=== PATIENT | female | born 1955 | race Caucasian/White ===

== ENCOUNTER 2016-08-29 14:53 | Inpatient (IN) | payer OTHER ==
--- NOTE | 2016-11-11 12:14 | HP ---
DATE OF CLINIC: 11/02/16 MERCEDES RENTERIA. : 1955 Planned Procedure: Right total knee arthroplasty Date of Surgery: November 14, 2016 Surgeon: Dr. Juan Pugh PCP: Dr. Manuel Erickson HISTORY OF PRESENT ILLNESS Mercedes Renteria is a 60 year old female. * Medication list reviewed with patient allergy list reviewed with patient. 60-year-old female seen today for a preoperative H&P for upcoming right TKA. Patient continues to be painful in her right knee with decreasing levels of activity secondary to her pain. She describes pain with weightbearing, stair climbing, squatting, kneeling, etc. She is here today for preop for definitive management. Dr. Pugh's last consultation is as follows: Patient is a 60-year-old female I saw over 6 years ago for bilateral right greater than left knee pain. At that time clinical and radiographic exam was consistent with DJD bilaterally with valgus deformity. We discussed an unloading brace as well as definitive management with arthroplasty. She decided to manage this nonoperatively since then. She does have a history, prior to my initial evaluation, of a right knee arthroscopy with PLM by Dr. Rinaldi without improvement. She recently saw [facility] with chronic worsening problems, particularly loaded flexion such as stairs, rising from a chair and startup pain. Also is noticing increasing feelings of instability and night pain. Additional previous treatment has included viscosupplementation and intraarticular corticosteroid with minimal temporary benefit. The unloading brace she has used in the past is uncomfortable and not well tolerated. [facility] sent her to PT, she did not go because of some difficulties with her spouse's health. She has tried to remain active, but is feeling very limited now. She is interested in proceeding with arthroplasty at this point starting on the right side and wonders about my opinion with respect to that. Comorbidities include hypertension, non-insulin dependent diabetes. CURRENT MEDICATION * *Supplement Miscellaneous 1 once a day calcium citrate/magnesium/Zinc wD3, Vitamin C w/sylwia hip, Mag/Ox, vitamin D3, 0 days, 0 refills * Adult Aspirin EC Low Strength 81 MG Tablet Delayed Release 1 once a day 0 days, 0 refills * Crestor 10 MG Tablet 1 once a day 0 days, 0 refills * Fish Oil 1000 MG Capsule 1 twice a day 0 days, 0 refills * Folic Acid 800 MCG Tablet 1 once a day 0 days, 0 refills * Ibuprofen 200 MG Tablet as needed 0 days, 0 refills * Lexapro 10 MG Tablet half a tablet every day aka: Escitalopram, 0 days, 0 refills * Losartan Potassium 50 MG Tablet 1 once a day 0 days, 0 refills * MetFORMIN HCl 500 MG Tablet 1 twice a day 0 days, 0 refills * PriLOSEC OTC 20 MG Tablet Delayed Release as needed 0 days, 0 refills * RaNITidine HCl 300 MG Capsule as needed 0 days, 0 refills * Super B-Complex Capsule 1 twice a day 0 days, 0 refills * Wellbutrin XL 150 MG Tablet Extended Release 24 Hour 1 once a day aka: Bupropion XL, 0 days, 0 refills PAST MEDICAL/SURGICAL HISTORY Reported: Medical: Cholesterol problems. A previous fracture Right wrist, Diabetes Mellitus Pre, history of Arthritis, Hypertension, Vertigo, and Asthma. Surgical / Procedural: Surgical / procedural history Rt knee scope mm Dr. Rinaldi. Diagnoses: Diabetes mellitus Hormone replacement Therapy. Surgical: * Surgery of the pharynx, adenoids, and tonsils * Hysterectomy 1979 SOCIAL HISTORY Behavioral: Quit smoking 08/08/02. Smoking status: Former smoker. Alcohol: A social drinker. Work: Occupation Retired. ALLERGIES * No Known Allergies FAMILY HISTORY Father ill Heart Disease,HBP,Diabetes Mother ill HBp, Thyroid Disease Brother ill HBP Sister ill Cancer Second sister ill HBP Third sister ill [place] Iillness, Thyroid Disease REVIEW OF SYSTEMS Systemic: No fever and no recent weight change. Head: No head symptoms. Cardiovascular: No cardiovascular symptoms. Pulmonary: No pulmonary symptoms. Gastrointestinal: No gastrointestinal symptoms. Psychological: No psychological symptoms. Skin: No skin lesions and no rash. PHYSICAL FINDINGS * Vitals taken 11/02/2016 11:11 am BP-Sitting L 152/98 mmHg BP Cuff Size Regular Pulse Rate-Sitting 78 bpm Temp-Oral 97.1 F Height 66 in Weight 245 lbs Body Mass Index 39.5 kg/m2 Body Surface Area 2.18 m2 Pain Level 4 Ears, Nose, Throat: * ENT: normal. Lungs: * Clear to auscultation No wheezing or crackles. Cardiovascular: Heart Rate And Rhythm: * Normal RRR without murmur. Abdomen: * Normal Soft NT +BS. Neurological: Motor: * Dominant Hand = Right Hand. Patient is a well-developed, well-nourished female in no acute distress, normal appearing mood and affect. On standing she has fairly notable genu valgum bilaterally. She ambulates with a stiff-legged gait. Evaluation of the right knee shows skin integrity to be well-preserved, no wounds, rashes or lesions. She has mild swelling, no gross effusion. Motion is 0-110 degrees. Her valgus is correctable to neutral. She is tender lateral greater than medial. There is pain and crepitation on patellofemoral compression. NT medially. Ligamentous exam shows 1+ laxity to valgus stress. Drawer is negative. Calf is soft and NT. Distal light touch sensation and motor function are grossly intact and symmetric. Pulses are palpable. Gentle rotation of the hip is nonirritable. Evaluation of the left knee shows skin integrity to be well-preserved, no wounds, rashes or lesions. Mild swelling, no gross effusion. Motion is 0-115 degrees. Her deformity is correctable to neutral. She is tender lateral greater than medial, fairly diffuse. Mild discomfort with patellar compression. Negative drawer. Calf is soft and NT. Distal light touch sensation and motor function are grossly intact and symmetric. Pulses are palpable. Gentle rotation of the hip is nonirritable. TESTS Radiographs, 4 views bilateral knees, from 03/11/16 are reviewed with the patient. These show complete lateral joint space loss with periarticular sclerosis and marginal spurring. Medial compartments are relatively well preserved. Mild spurring at the patellofemoral articulation bilaterally. ASSESSMENT DJD, right knee, with valgus deformity. PREVIOUS TESTS * Test: CBC WITH DIFF Report Date: 10/26/2016 WBC 7.5 10*3/mL BASOPHIL 0.5 % RBC 4.68 10*6/uL NEUTROPHILS 51.1 % MCH 31.2 pg High MCHC 33.2 g/dL RDW 12.7 % MCV 94.0 fL PLATELET COUNT 132 10*3/mL IMM NEUT % 0.3 % IMM NEUT # 0.0 10*3/mL MONOCYTES 6.2 % EOSINOPHIL 3.3 % High HCT 44.0 % HGB 14.6 g/L LYMPHOCYTE 38.6 % ANC 3.8 10*3/mL * Test: COMPREHENSIVE METABOLIC PANEL Report Date: 10/26/2016 ALT/SGPT 23 U/L ALBUMIN 4.8 g/dL ALB/GLOB RATIO 1.9 BUN 14 mg/dL BUN/CREAT RATIO 18 CALCIUM 10.4 mg/dL High GLUCOSE 126 mg/dL High CREATININE 0.8 mg/dL SODIUM 140 meq/L POTASSIUM 4.3 meq/L CHLORIDE 100 meq/L CARBON DIOXIDE 32 meq/L High ANION GAP 12 meq/L TOT PROTEIN 7.3 g/dL GLOBULIN 2.5 g/dL BILI,TOTAL 0.5 mg/dL AST/SGOT 20 U/L ALK PHOSPHATASE 50 U/L GFR 73 * Test: URINALYSIS WITH MICROSCOPIC Report Date: 10/26/2016 EPITHELIAL CELL 0-2 WBC 0-1 GLUCOSE NEGATIVE BACTERIA 0 PH,URINE 6.0 SPEC. GRAVITY 1.025 KETONE TRACE NITRITE NEGATIVE RBC 0 BLOOD NEGATIVE BILIRUBIN NEGATIVE APPEARANCE HAZY PROTEIN 1+ COLOR YELLOW LEUK ESTERASE TRACE UROBILINOGEN NORMAL AMORPH SEDIMENT MODERATE * Test: CULTURE, MRSA Report Date: 10/28/2016 CULTURE, MRSA See Report THERAPY * Patient not eligible for fall risk assessment. PLAN * Unilateral primary osteoarthritis, right knee Physical Therapy: PT [facility] * OTHER OxyCONTIN 10 MG T12A, 1 po q 12 hours-TO BE USED FOR AFTER SURGERY, 10 days, 0 refills OxyCODONE HCl 5 MG TABS, 1or 2 tablets every 4 to 6 hours as needed-TO BE USED FOR AFTER SURGERY, 5 days, 0 refills CeleBREX 200 MG CAPS, 1 once a day-TO BE USED FOR AFTER SURGERY, 20 days, 0 refills * Total knee arthroplasty -Right Discussed with patient in detail the limitations, expectations as well as risks and possible complications of surgery including, but not limited to wound problems or infection, neurovascular injury, continued knee pain or dysfunction, including the possibility of prosthetic wear or failure over time that may require additional operative or nonoperative treatment. Patient also realizes the perioperative risks including risks associated with anesthesia and would like to proceed. A full PAR conference was held, questions and concerns addressed and informed consent was obtained. Patient will be sent from my office for completion of the preoperative workup. Patient will use ECASA 325mg one per day for 6 weeks postoperatively for DVT prophylaxis. Patient would like to perform their postop PT at [facility] with total knee arthroplasty protocol. CARE TEAM Manuel Erickson MD Internal Medicine
[2016-11-14] MEDS ORDERED: TRANEXAMIC ACID 1,000 MG in SODIUM CHLORIDE 0.9% 100 ML IV PRN (10:15)
[2016-11-14] MEDS ORDERED: TRAMADOL HCL 50 MG TABLET PO ONE (10:15)
[2016-11-14] MEDS ORDERED: BUPIVACAINE 0.25% (MDV) 24 ML, MORPHINE SULFATE 8 MG, EPINEPHRINE 0.3 MG in SODIUM CHLO... IF PRN (10:15)
[2016-11-14] MEDS ORDERED: CLONIDINE HCL 0.1 MG/24 HR (7 DAY PATCH) TD SCH (10:15)
[2016-11-14] MEDS ORDERED: FAMOTIDINE 20 MG TABLET PO ONE (10:15)
[2016-11-14] MEDS ORDERED: POLYMYXIN B SULFATE 500,000 UNITS, BACITRACIN 25,000 UNITS in SODIUM CHLORIDE 3 L IRRIG... IR PRN (10:15)
[2016-11-14] MEDS ORDERED: CELECOXIB 200 MG CAPSULE PO ONE (10:15)
[2016-11-14] MEDS ORDERED: OXYCODONE HCL 10 MG TAB.SR PO ONE ×2 (10:15→11:06)
[2016-11-14] MEDS ORDERED: GABAPENTIN 600 MG TABLET PO ONE (10:15)
[2016-11-14] MEDS ORDERED: ONDANSETRON 4 MG/2ML 2 ML VIAL IV ONE (10:15)
[2016-11-14] MEDS ORDERED: BUPIVACAINE 0.25% (MDV) 20 ML in SODIUM CHLORIDE 0.9% FLUSH 20 ML IF PRN (10:15)
[2016-11-14] MEDS ORDERED: CEFAZOLIN SODIUM 2 GRAM PREMIX 100 ML IV PRN (10:15)
[2016-11-14] MEDS ORDERED: FENTANYL 100 MCG/2 ML VIAL ONE (10:26)
[2016-11-14] MEDS ORDERED: MIDAZOLAM HCL 1 MG/ML 2ML VIAL ONE ×3 (10:26→14:02)
[2016-11-14] MEDS ORDERED: IV START KIT ONE (10:34)
[2016-11-14] MEDS ORDERED: SODIUM CHLORIDE 0.9% 1,000 ML ONE (10:35)
[2016-11-14] MEDS ORDERED: CEFAZOLIN SODIUM 2 GRAM PREMIX 100 ML IV ONE (10:36)
[2016-11-14] MEDS ORDERED: TRAMADOL HCL 50 MG TABLET ONE (11:06)
[2016-11-14] MEDS ORDERED: FAMOTIDINE 20 MG TABLET ONE (11:07)
[2016-11-14] MEDS ORDERED: GABAPENTIN 600 MG TABLET ONE (11:07)
[2016-11-14] MEDS ORDERED: ONDANSETRON 4 MG/2ML 2 ML VIAL ONE (11:07)
[2016-11-14] MEDS ORDERED: CLONIDINE HCL 0.1 MG/24 HR (7 DAY PATCH) TD ONE (11:07)
[2016-11-14] MEDS ORDERED: CELECOXIB 200 MG CAPSULE ONE (11:07)
[2016-11-14] MEDS ORDERED: SPINAL PROCEDURAL TRAY 1 EACH ONE (12:03)
[2016-11-14] MEDS ORDERED: NERVE BLOCK PROCEDURAL TRAY 1 EACH ONE (12:03)
[2016-11-14] MEDS ORDERED: ROPIVACAINE 0.5% 30 ML VIAL ONE (12:04)
[2016-11-14] MEDS ORDERED: EPHEDRINE SULFATE UD SYR 25 MG 25 MG/5 ML SYRINGE IV ONE (13:54)
[2016-11-14] MEDS ORDERED: PROPOFOL 40 ML IV ONE (13:55)
[2016-11-14] MEDS ORDERED: ON-Q PUMP/ROPIVACAINE 0.2% 450 ML in PREMIX BAG 1 EACH NB PRN (14:16)
[2016-11-14] MEDS ORDERED: ATROPINE SULFATE 0.4 MG/1 ML VIAL IV PRN (14:16)
[2016-11-14] MEDS ORDERED: HYDROMORPHONE HCL 1 MG/ML SYRINGE IV PRN ×2 (14:16→16:18)
[2016-11-14] MEDS ORDERED: FENTANYL 100 MCG/2 ML VIAL IV PRN (14:16)
[2016-11-14] MEDS ORDERED: PROMETHAZINE HCL 25 MG/ML VIAL IM PRN (14:16)
[2016-11-14] MEDS ORDERED: NALOXONE HCL 0.4 MG/ML VIAL IV PRN (14:16)
[2016-11-14] MEDS ORDERED: SODIUM CHLORIDE 0.9% 1,000 ML IV SCH (14:30)
[2016-11-14] MEDS ORDERED: PROPOFOL 20 ML IV ONE (14:39)
[2016-11-14] MEDS ORDERED: ON-Q PUMP/ROPIVACAINE 0.2% 450 ML ONE (15:27)
--- NOTE | 2016-11-14 15:37 | PCMBPN ---
Brief Post Op Note: Date of Procedure: 11/14/16 Preoperative Diagnosis: DJD right knee Postoperative Diagnosis: 1. [Same] Procedure: right TKA Surgeon: Juan Pugh MD Assist: Param (REMA) Anesthesia: spinal/add block ([place]) Findings: valgus knee Condition: stable to PAR Complications: none IV Fluids: 1800 mLs of LR [] Urine Output: 700 mLs Estimated Blood Loss: 200 mLs Tourniquet Time: ~45 Specimens: [N/A] Implants: Legion Drains: none
--- NOTE | 2016-11-14 16:13 | OP ---
MERCEDES DESHPANDE [id number] : 1955 DATE OF SURGERY: November 14, 2016 PREOPERATIVE DIAGNOSIS: Degenerative joint disease right knee POSTOPERATIVE DIAGNOSIS: Same PROCEDURE: Right Total Knee Arthroplasty COMPONENTS: Legion size 5 narrow posterior stabilized Oxinium cemented femoral component, size 4 cemented tibial base plate, 9mm posterior stabilized high flexion cross-linked polyethylene articular insert, 32mm resurfacing patella. SURGEON: Juan Pugh M.D. COLLECTIONS ASSISTANT: Sintia SANTIZO) ANESTHESIA: Spinal plus adductor nerve block per [place]. ESTIMATED BLOOD LOSS: 200 cc IV FLUID REPLACEMENT: per anesthesia, 1.8 liters crystalloid. URINE OUTPUT: 700 cc DRAINS: None TOURNIQUET TIME: Approximately 45 minutes COMPLICATIONS: None HISTORY: Briefly, patient is a 61-year-old female with clinical and radiographic evidence of advanced degenerative disease of their right knee. They have failed traditional non-operative management and desire elective total knee arthroplasty. For additional details, please refer to the previously dictated Preoperative History and Physical Examination. A PAR conference was held, questions and concerns were addressed, and informed consent was obtained. FINDINGS: Fixed valgus deformity with significant lateral wear off the distal femur as well as posterolateral tibia. There were tricompartmental changes with involvement of the patellofemoral and medial compartment as well. Significant intraarticular synovitis was evident, particularly in the suprapatellar pouch. PROCEDURE: The patient was taken to the operating room after the placement of a spinal anesthetic and regional nerve block. They were placed supine on the operating room table, a tourniquet was applied to the proximal thigh and the right lower extremity was prepped and draped out in the usual sterile fashion. Preoperative IV antibiotics were given empirically. Intraoperative DVT prophylaxis consisted of contralateral foot pumps. Personal filtration suits were used as was a closed room environment. A WHO timeout was taken. Surgical site was identified and confirmed. The leg was then elevated and the tourniquet inflated after gravity exsanguination. This was released after initial exposure and not utilized again until cementation. Tranexamic acid was infiltrated over 10 minutes prior to incision, 1 gram dose per protocol. A similar 2nd dose was given at initiation of closure. With the knee flexed, an anteromedial incision was made from the level of the tibial tubercle to two centimeters proximal to the superior pole of the patella. A medial arthrotomy was performed with a mini-mid vastus approach. A medial subperiosteal proximal tibial release was performed and a portion of the anterior fat pad was excised to improve visualization. The involved area of the synovium in the supra-patellar pouch was excised and the remainder raised subperiosteally. The anterior and posterior cruciate ligaments were excised as were the remaining portions of the anterior horns of the medial and lateral menisci. Minimally invasive instrumentation and philosophy were used throughout the procedure in an attempt to decrease the extent of soft tissue disruption/damage. Patient matched cutting blocks were also used as per our preoperative plan. The [employer] patient matched distal femoral cutting block was applied and secured to the bone. We confirmed that the alignment matched our preoperative plan and made the distal femoral cut. We confirmed the size of the femur and placed the appropriate 4-in-1 cutting block making our anterior and posterior condylar cuts followed by the chamfer cuts. Residual marginal osteophytes were removed. Attention was then directed to the tibia which was retracted anteriorly. Remaining meniscal tissue was excised. The Visionaire patient matched tibial block was then positioned and secured to bone. Alignment was confirmed as per our preoperative plan and the proximal tibial cut made. The tibia was sized and we passed the 11 mm. punch. We then balanced the flexion and extension gaps by removal of residual posteromedial and posterolateral femoral osteophytes under direct visualization. We confirmed hemostasis. We then completed the femoral preparation by reaming and chiseling the notch. Femoral and tibial trial components were placed. We were able to obtain full extension with nice roll back and good coronal plane alignment and stability. The patella tracked well and was prepared using the Erasmo patellar reaming system removing 9 mm. of bone. Osteophytes were removed prior to this with a rongeur and we performed a circumferential limited denervation using cautery. This was sized accordingly and punch holes were drilled. We marked our tibial rotation and removed the trial components after passing the cruciform tibial punch. The knee was then re-exsanguinated and the tourniquet inflated. Double antibiotic pulsatile lavage was used to irrigate the knee and clean the cancellous omero interstices which were then carefully dried. Periarticular injection was done at this point per protocol of the posterior capsule, posteromedial knee and synovium. Two doses of high viscosity, antibiotic impregnated polymethylmethacrylate were used to cement the tibial, femoral, and then patellar components. The knee was held in extension while the cement cured. All residual methacrylate was meticulously removed. Attention was then directed towards closure. We irrigated and the retinaculum was closed with a running #2 absorbable Strato-Fix suture. A second periarticular injection was done at this point per protocol. The repair was checked in maximum flexion. We then lightly irrigated the subcutaneous tissue and closed with interrupted 2-0 and 3-0 Vicryl Plus. The skin was then reapproximated with a subcuticular 4-0 Monocryl followed by Dermabond Prineo. A sterile compression dressing was applied. The patient was then transferred to their hospital bed and sent to the post anesthesia recovery room in stable condition. They tolerated the procedure well. Sponge, instrument, and needle count were correct. CC: Jhoana Arora MD PT [facility]
[2016-11-14] MEDS ORDERED: CALCIUM CARBONATE 500 MG TAB.CHEW PO PRN (16:18)
[2016-11-14] MEDS ORDERED: KETOROLAC TROMETHAMINE 30 MG/ML 1 ML VIAL IV PRN (16:18)
--- NOTE | 2016-11-14 16:26 | RAD ---
KNEE RIGHT 1 OR 2 VIEWS HISTORY: Postop knee arthroplasty. COMPARISONS: 03/11/2016. FINDINGS: 2 views of the right knee and demonstrate interval placement of a right knee arthroplasty with femoral and tibial components. No pericomponent fracture is suggested. The knee joint spaces are well-maintained. IMPRESSION: 1. An interval total right knee arthroplasty with no pericomponent fracture visualized.
[2016-11-14] MEDS ORDERED: HYDROMORPHONE HCL 2 MG/ML SYRINGE IV PRN (17:04)
[2016-11-14] MEDS ORDERED: HYDROMORPHONE HCL 0.5 MG/0.5 ML SYRINGE IV PRN (17:05)
[2016-11-14] MEDS ORDERED: PUMP TUBING ONE (17:12)
[2016-11-14] MEDS: NS/Potassium Chlor 20 mEq 1,000 ML IV SCH (17:21)
[2016-11-14] MEDS: ON-Q PUMP/ROPIVACAINE 0.2% 450 ML in PREMIX BAG 1 EACH NB PRN (17:22)
[2016-11-14] MEDS ORDERED: INSULIN ASPART (DOSE) 100 UNITS/1 ML SUB-Q PRN (17:50)
[2016-11-14 17:57] VITALS: BMI 39.4
[2016-11-14] MEDS: ACETAMINOPHEN 500 MG TABLET PO SCH ×2 (19:03→23:07)
[2016-11-14] MEDS: PANTOPRAZOLE 40 MG TABLET DR PO SCH (19:10)
--- NOTE | 2016-11-14 19:58 | CONS ---
MERCEDES DESHPANDEHM [id number] : 1955 DATE OF ADMISSION: November 14, 2016 DATE OF CONSULTATION: November 14, 2016 PRIMARY CARE PROVIDER: Manuel Erickson M.D. CONSULTATION REQUESTED BY: Juan Pugh M.D. REASON FOR CONSULTATION: Perioperative medical management of diabetes and hypertension. CHIEF COMPLAINT: Right knee pain. HISTORY ON ADMISSION: Ms. Deshpande has a long history of osteoarthritis. She consulted with Dr. Pugh and presented today for planned right total knee arthroplasty. She had surgery under spinal anesthesia with adductor block. Estimated blood loss was 200 mL. Tourniquet time approximately 45 minutes. No complications noted. She is seen on the medical/surgical floor postoperatively. She is awake and alert, oriented and denies any complaints. No pain, dyspnea, nausea, pruritus or other complaints. PREOPERATIVE REVIEW OF SYSTEMS: No recent upper or lower respiratory complaints. No cardiac complaints. No gastrointestinal complaints. No genitourinary complaints. PAST MEDICAL HISTORY: 1. Diabetes mellitus type 2, not on insulin. 2. Hypertension. 3. Obesity with a body mass index of 39.4. 4. Generalized anxiety. PAST SURGICAL HISTORY: 1. Prior right knee arthroscopy. 2. Tonsils and adenoids. 3. Hysterectomy in 1979. ALLERGIES: NONE KNOWN. However, she does report that she has been taking TYLENOL recently and that made her nauseated and did not help her pain. HOME MEDICATIONS: 1. Vitamin B complex. 2. Rosuvastatin 10 mg orally daily. 3. Losartan 50 mg orally daily. 4. Folic acid. 5. Lexapro 5 mg orally daily. 6. Cholecalciferol 2000 international units twice daily. 7. Calcium carbonate with vitamin D twice daily. 8. Bupropion 150 mg orally daily. 9. Ascorbic acid. 10. Omeprazole 20 mg orally as needed. 11. Franklin 3 supplement. 12. Aspirin 81 mg daily. 13. Ranitidine 75 mg orally as needed. 14. Metformin 1000 mg orally daily. 15. Magnesium oxide daily. HABITS: She is a former smoker, quit in 2002. She does drink alcohol about two drinks per evening. She has not had withdrawal symptoms. 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 FAMILY HISTORY: Significant for diabetes and thyroid disorders. PHYSICAL EXAMINATION: GENERAL: This is a pleasant 60-year-old. She is alert and oriented. VITAL SIGNS: Temperature is 98.7 degrees Fahrenheit, pulse 63, blood pressure 152/83, respiratory rate 17, oxygen saturation 100% on 2 L of oxygen by nasal cannula. HEENT: Pupils equal, round and reactive. Extraocular muscles are intact. Oropharynx is moist and stained by red Jell-O. LUNGS: Chest is clear to auscultation. HEART: Regular with 2/6 systolic murmur. ABDOMEN: Obese, soft, nontender, normal bowel tones. No organomegaly. EXTREMITIES: Moderate dorsalis pedis pulses. Right knee is in a cooling blanket and adductor nerve block is in place in the right thigh. NEUROLOGIC: Alert and oriented. No focal deficits. PREOPERATIVE LABORATORY STUDIES: Preoperative laboratory studies on October 26, 2016, normal CBC, normal prothrombin time and partial thromboplastin time, normal chemistry panel except for a CO2 mildly elevated at 32 and glucose of 126. She had trace ketonuria and proteinuria. Nasal swab for MRSA was negative. ASSESSMENT: Ms. Deshpande is a 61-year-old status post right total knee arthroplasty. She has underlying diabetes mellitus type 2, not on inulin therapy, hypertension and anxiety as well as obesity with a body mass index of 39.4. RECOMMENDATIONS: 1. Postoperative care per orthopedics. 2. Postoperative venous thromboembolism prophylaxis with aspirin and mechanical measures. 3. Hold metformin, check blood sugars before meals and at bedtime and cover with insulin as necessary. 4. Parameters for antihypertensive medications should she have postoperative hypotension. 5. Continue usual medications for anxiety. 6. Replace outpatient as needed acid blocking medications with scheduled inpatient famotidine and pantoprazole to prevent gastrointestinal distress. Thank you, Dr. Pugh, for this consultation. Hospitalist service will follow.
[2016-11-14] MEDS: FAMOTIDINE 20 MG TABLET PO SCH (21:20)
[2016-11-14] MEDS: ASCORBIC ACID 500 MG TABLET PO SCH (21:20)
[2016-11-14] MEDS: DOCUSATE SODIUM 100 MG CAPSULE PO SCH (21:20)
[2016-11-14] MEDS: CEFAZOLIN SODIUM 1 GRAM PREMIX 1 G in Premix (D5W) 50 ml 1 EACH IV SCH (21:21)
[2016-11-14] MEDS: VITAMIN D3 1,000 UNITS CAP.LIQ PO SCH (21:21)
[2016-11-14] MEDS: OXYCODONE HCL 5 MG TABLET PO PRN (21:21)
[2016-11-15] MEDS: OXYCODONE HCL 5 MG TABLET PO PRN ×7 (01:28→21:35)
[2016-11-15] MEDS: NS/Potassium Chlor 20 mEq 1,000 ML IV SCH ×3 (02:15→16:44)
[2016-11-15] MEDS: ACETAMINOPHEN 500 MG TABLET PO SCH ×3 (05:45→18:02)
[2016-11-15] MEDS: CEFAZOLIN SODIUM 1 GRAM PREMIX 1 G in Premix (D5W) 50 ml 1 EACH IV SCH (05:45)
[2016-11-15 06:45] LABS: HEMATOCRIT 34.3 % (37.0-47.0); HEMOGLOBIN 11.1 gm/l (12.0-16.0); MEAN CELL VOLUME 96.9 fl (81.0-99.0); MEAN CORPUSCULAR HEMOGLOBIN 31.4 pg (27.0-31.0); MEAN CORPUSCULAR HGB CONC 32.4 g/dl (33.0-37.0); RED CELL DISTRIBUTION WIDTH 12.9 % (11.5-14.5)
[2016-11-15 07:01] LABS: CALCIUM 8.3 mg/dL (8.6-10.3)
--- NOTE | 2016-11-15 07:22 | PDOC43 ---
- Subjective Findings: Pt seen this morning up and awake. Pain seems controlled at this point. Ready to get out of bed and work with PT. Subjective: Reports Pain Tolerable, Denies Flatus, Denies Chest Pain, Denies Shortness of Breath, Denies Nausea, Denies Vomiting - Objective Vital Signs Temperature 97.1 F 11/15/16 03:49 Pulse Rate 76 11/15/16 03:49 Respiratory Rate 18 11/15/16 03:49 Blood Pressure 104/64 11/15/16 03:49 O2 Saturation by Pulse Oximetry 92 11/15/16 03:49 Oxygen Delivery Method Room Air Oxygen Flow Rate 0 Laboratory 11/15/16 06:16 11/15/16 06:16 11/15/16 11/14/16 06:16 10:31 RBC 3.54 L MCH 31.4 H MCHC 32.4 L Anion Gap 7 L Estimated GFR 101 H POC Capillary Glucose 112 H Calcium 8.3 L Active Medication Orders Category Date Time Status Acetaminophen [Tylenol] Med 11/14/16 18:00 Active 1,000 mg PO Q6H Ascorbic Acid [Vitamin C] Med 11/14/16 21:00 Active 500 mg PO BID Aspirin (Enteric Coated) [Ecotrin] Med 11/15/16 09:00 Active 325 mg PO DAILY Bisacodyl [Dulcolax] Med 11/17/16 15:40 Active 10 mg CA DAILY PRN Bupropion HCl [Wellbutrin Xl] Med 11/15/16 09:00 Active 150 mg PO DAILY Calcium Carbonate [Tums] Med 11/14/16 16:18 Active 1,000 - 2,000 mg PO Q2H PRN Celecoxib [Celebrex] Med 11/15/16 09:00 Active 200 mg PO DAILY Docusate Sodium [Colace] Med 11/14/16 21:00 Active 100 mg PO BID Escitalopram Oxalate [Lexapro] Med 11/15/16 09:00 Active 5 mg PO DAILY Famotidine [Pepcid] Med 11/14/16 21:00 Active 20 mg PO BID Hydromorphone HCl [Dilaudid] Med 11/14/16 16:18 Active 0.5 - 2 mg IV Q2H PRN Hydromorphone HCl [Dilaudid] Med 11/14/16 17:04 Active 0.5 - 2 mg IV Q2H PRN Hydromorphone HCl [Dilaudid] Med 11/14/16 17:05 Active 0.5 - 2 mg IV Q2H PRN Insulin Aspart (Dose) [Novolog (Dose)] Med 11/14/16 17:50 Active See Protocol SUB-Q WM/BEDTIME PRN Ketorolac Tromethamine [Toradol] Med 11/14/16 16:18 Active 30 mg IV Q6H PRN Losartan Potassium [Cozaar] Med 11/15/16 09:00 Active 50 mg PO DAILY Magnesium Hydroxide [Milk of Magnesia] Med 11/15/16 15:40 Active 30 ml PO DAILY PRN Magnesium Oxide Med 11/15/16 09:00 Active 400 mg PO DAILY Multivitamins [One-A-Day] Med 11/15/16 09:00 Active 1 tab PO DAILY NS/Potassium Chlor 20 mEq 1,000 ml Med 11/14/16 16:18 Active IV 125 mls/hr On-Q Pump/Ropivacaine 0.2% 450 ml Med 11/14/16 16:18 Active Premix Bag [Premix Fluid] 1 each NB Q50H Ondansetron 4 mg/2ml Vial [Zofran] Med 11/14/16 16:18 Active 4 - 6 mg IV Q6H PRN Oxycodone HCl [Roxicodone] Med 11/14/16 16:18 Active 5 - 10 mg PO Q4H PRN Pantoprazole Sodium [Protonix] Med 11/14/16 18:00 Active 40 mg PO DAILY Remove Patch Med 11/15/16 11:12 Once 1 each TD X1 ONE Rosuvastatin Calcium [Crestor] Med 11/15/16 09:00 Active 10 mg PO DAILY Sodium Chloride 0.9% Flush [Normal Saline 10ml Flush] Med 11/14/16 16:18 Active 10 - 50 ml IV PRN PRN Sodium Chloride 0.9% Flush [Normal Saline 10ml Flush] Med 11/15/16 01:00 Active 10 ml IV Q8HR Vitamin D3 Med 11/14/16 21:00 Active 2,000 units PO BID Intake and Output 11/13/16 11/14/16 11/15/16 23:59 23:59 23:59 Intake Total 3200 3850 Output Total 1575 3750 Balance 1625 100 General: Afebrile HEENT: Atraumatic Lungs: Normal Air Movement Abdomen: Non-Distended Skin: Normal Color Neurological: Alert, Oriented x 4 Psych/Mental Status: Normal Affect, Normal Mood - Right Lower Extremity Motor: Extensor Hallucis Longus: 5/5, Tibialis Anterior: 5/5, Gastrocnemius: 5/5 , Peroneals: 5/5, Quadriceps: 3/5 Gross Sensation to Light Touch: Present: Deep Peroneal Nerve, Superficial Peroneal Nerve Capillary Refill: < 3 Seconds Motion: Calf soft NT Knee Rom 0-65 Min assist with SLR - Problems (1) Status post right knee replacement Status: AcuteAssessment/Plan: Pod#1 1. Physical Therapy:Mobilize with PT/OT , encouraged bed exercise 2. Pain Control:Per protocol and nerve cath 3. DVT Prophylaxis: ASA, foot pumps and mobility 4. Disposition:Doing well at this point 5. Medical Issues: DM. Management per hospitalist appreciate the care and consult.
[2016-11-15] MEDS: ON-Q PUMP/ROPIVACAINE 0.2% 450 ML in PREMIX BAG 1 EACH NB PRN (07:30)
[2016-11-15] MEDS: BUPROPION HCL 150 MG XL TAB.ER.24H PO SCH (09:38)
[2016-11-15] MEDS: ASCORBIC ACID 500 MG TABLET PO SCH ×2 (09:38→21:35)
[2016-11-15] MEDS: VITAMIN D3 1,000 UNITS CAP.LIQ PO SCH ×2 (09:39→21:36)
[2016-11-15] MEDS: MULTIVITAMINS 1 TAB TABLET PO SCH (09:39)
[2016-11-15] MEDS: DOCUSATE SODIUM 100 MG CAPSULE PO SCH ×2 (09:39→21:35)
[2016-11-15] MEDS: ROSUVASTATIN CALCIUM 10 MG TABLET PO SCH (09:39)
[2016-11-15] MEDS: Magnesium Oxide 400 MG TABLET PO SCH ×2 (09:39→09:50)
[2016-11-15] MEDS: ASPIRIN (ENTERIC COATED) 325 MG TABLET.EC PO SCH (09:39)
[2016-11-15] MEDS: ESCITALOPRAM 10 MG TABLET PO SCH (09:40)
[2016-11-15] MEDS: LOSARTAN POTASSIUM 50 MG TABLET PO SCH (09:40)
[2016-11-15] MEDS: CELECOXIB 200 MG CAPSULE PO SCH (09:40)
[2016-11-15] MEDS: PANTOPRAZOLE 40 MG TABLET DR PO SCH (09:46)
[2016-11-15] MEDS ORDERED: FAMOTIDINE 20 MG TABLET PO PRN (09:49)
[2016-11-15] MEDS: FAMOTIDINE 20 MG TABLET PO SCH (09:55)
[2016-11-15] MEDS ORDERED: REMOVE PATCH 1 EACH UNIT TD SCH (10:15)
--- NOTE | 2016-11-15 10:25 | PDOC43 ---
- Subjective Chief Complaint: S/P RTK arthroplasty 11/14/16 Sitting up in chair. Feels well, denies faintness or dyspnea. - Objective Vital Signs Temperature 97 F 11/15/16 08:29 Pulse Rate 75 11/15/16 08:51 Respiratory Rate 18 11/15/16 08:29 Blood Pressure 127/73 11/15/16 08:51 O2 Saturation by Pulse Oximetry 97 11/15/16 08:29 Oxygen Delivery Method Room Air Oxygen Flow Rate 0 Intake and Output 11/14/16 11/15/16 11/16/16 06:59 06:59 06:59 Intake Total 7050 216 Output Total 5325 Balance 1725 216 General: Alert, Oriented x3, Cooperative, No Acute Distress HEENT: Mucous membr. moist/pink Lungs: Clear to Auscultation Bilaterally Cardiovascular: Regular Rate and Rhythm Abdomen: Soft, Normal Bowel Sounds, No Tenderness, No Masses Extremities: Normal Pulses, No Edema Skin: Normal Color Neurological: Normal Speech Psych/Mental Status: Normal Mood Laboratory 11/15/16 06:16 11/15/16 06:16 11/15/16 11/15/16 11/14/16 08:53 06:16 10:31 RBC 3.54 L MCH 31.4 H MCHC 32.4 L Anion Gap 7 L Estimated GFR 101 H POC Capillary Glucose 143 H 112 H Calcium 8.3 L Current Medications: Current meds reviewed in EMR. 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 Metformin held but can be restarted on discharge. (3) HTN (hypertension), benign Status: ChronicAssessment/Plan: Post-op hypotension today, clonidine patch removed, usual meds held. (4) Obesity, Class II, BMI 35-39.9 Status: ChronicAssessment/Plan: Complicates surgical care and diabetic care. (5) Acute blood loss as cause of postoperative anemia Status: AcuteAssessment/Plan: Mild, asymptomatic, follow. VTE Prophylaxis: Mechanical and ASA Disposition: D/C in 1-2 days
[2016-11-15] MEDS ORDERED: REMOVE PATCH 1 EACH UNIT TD ONE (11:12)
[2016-11-15] MEDS ORDERED: MAGNESIUM HYDROXIDE 30 ML UDCUP PO PRN (15:40)
[2016-11-15] MEDS: ONDANSETRON 4 MG/2ML 2 ML VIAL IV PRN (18:09)
[2016-11-15] MEDS ORDERED: Magnesium Oxide 400 MG TABLET PO SCH (21:00)
[2016-11-16] MEDS: ACETAMINOPHEN 500 MG TABLET PO SCH ×4 (01:51→11:47)
[2016-11-16 05:56] LABS: HEMATOCRIT 34.8 % (37.0-47.0); HEMOGLOBIN 11.4 gm/l (12.0-16.0)
[2016-11-16] MEDS: ON-Q PUMP/ROPIVACAINE 0.2% 450 ML in PREMIX BAG 1 EACH NB PRN ×2 (07:18→11:48)
[2016-11-16] MEDS: LOSARTAN POTASSIUM 50 MG TABLET PO SCH (08:25)
--- NOTE | 2016-11-16 08:26 | PDOC43 ---
- Subjective Subjective: Reports Pain Tolerable, Denies Nausea (has been avoiding narcotics primarily because of concerns of nausea), Denies Vomiting, Denies Fever - Objective Vital Signs Temperature 98.1 F 11/16/16 07:07 Pulse Rate 71 11/16/16 07:07 Respiratory Rate 16 11/16/16 07:07 Blood Pressure 114/74 11/16/16 07:07 O2 Saturation by Pulse Oximetry 93 11/16/16 07:07 Oxygen Delivery Method Room Air Oxygen Flow Rate 0 Laboratory 11/16/16 05:30 11/15/16 06:16 11/16/16 11/15/16 07:20 08:53 POC Capillary Glucose 112 H 143 H Active Medication Orders Category Date Time Status Acetaminophen [Tylenol] Med 11/14/16 18:00 Active 1,000 mg PO Q6H Ascorbic Acid [Vitamin C] Med 11/14/16 21:00 Active 500 mg PO BID Aspirin (Enteric Coated) [Ecotrin] Med 11/15/16 09:00 Active 325 mg PO DAILY Bisacodyl [Dulcolax] Med 11/17/16 15:40 Active 10 mg SD DAILY PRN Bupropion HCl [Wellbutrin Xl] Med 11/15/16 09:00 Active 150 mg PO DAILY Calcium Carbonate [Tums] Med 11/14/16 16:18 Active 1,000 - 2,000 mg PO Q2H PRN Celecoxib [Celebrex] Med 11/15/16 09:00 Active 200 mg PO DAILY Docusate Sodium [Colace] Med 11/14/16 21:00 Active 100 mg PO BID Escitalopram Oxalate [Lexapro] Med 11/15/16 09:00 Active 5 mg PO DAILY Famotidine [Pepcid] Med 11/15/16 09:49 Active 20 mg PO BID PRN Hydromorphone HCl [Dilaudid] Med 11/14/16 17:04 Active 0.5 - 2 mg IV Q2H PRN Hydromorphone HCl [Dilaudid] Med 11/14/16 17:05 Active 0.5 - 2 mg IV Q2H PRN Insulin Aspart (Dose) [Novolog (Dose)] Med 11/14/16 17:50 Active See Protocol SUB-Q WM/BEDTIME PRN Losartan Potassium [Cozaar] Med 11/15/16 09:00 Active 50 mg PO DAILY Magnesium Hydroxide [Milk of Magnesia] Med 11/15/16 15:40 Active 30 ml PO DAILY PRN Magnesium Oxide Med 11/15/16 21:00 Active 400 mg PO BEDTIME Multivitamins [One-A-Day] Med 11/15/16 09:00 Active 1 tab PO DAILY On-Q Pump/Ropivacaine 0.2% 450 ml Med 11/14/16 16:18 Active Premix Bag [Premix Fluid] 1 each NB Q50H Ondansetron 4 mg/2ml Vial [Zofran] Med 11/14/16 16:18 Active 4 - 6 mg IV Q6H PRN Oxycodone HCl [Roxicodone] Med 11/14/16 16:18 Active 5 - 10 mg PO Q4H PRN Pantoprazole Sodium [Protonix] Med 11/14/16 18:00 Active 40 mg PO DAILY Rosuvastatin Calcium [Crestor] Med 11/15/16 09:00 Active 10 mg PO DAILY Sodium Chloride 0.9% Flush [Normal Saline 10ml Flush] Med 11/14/16 16:18 Active 10 - 50 ml IV PRN PRN Sodium Chloride 0.9% Flush [Normal Saline 10ml Flush] Med 11/15/16 01:00 Active 10 ml IV Q8HR Vitamin D3 Med 11/14/16 21:00 Active 2,000 units PO BID Intake and Output 11/14/16 11/15/16 11/16/16 23:59 23:59 23:59 Intake Total 3200 7321 700 Output Total 1575 6200 4550 Balance 1625 1121 -3850 General: Afebrile HEENT: Mucous membr. moist/pink Lungs: Normal Air Movement Cardiovascular: Regular Rate and Rhythm Skin: Normal Color, Warm, Dry, Intact, No Rash Neurological: Alert, Oriented x 4 Psych/Mental Status: Normal Affect, Normal Mood - Right Lower Extremity Incision: Dressing Clean/Dry/Intact, Well Approximated, No Drainage, No Ecchymosis Motor: Extensor Hallucis Longus: 5/5, Tibialis Anterior: 5/5, Gastrocnemius: 5/5 Gross Sensation to Light Touch: Present: Deep Peroneal Nerve, Superficial Peroneal Nerve, Medial Plantar Nerve, Lateral Plantar Nerve Capillary Refill: < 3 Seconds Motion: PROM 0-50 supine unable to do ASLR - Problems (1) Status post total right knee replacement Status: AcuteAssessment/Plan: POD#2- doing reasonably well 1. Physical Therapy: continue per protocol 2. Pain Control: reasonable- instructions given for nerve catheter 3. DVT Prophylaxis: mechanicals/ECASA 4. Disposition: home either this PM or tomorrow depending on progress with PT. Instructions reviewed 5. Medical Issues:stable- appreciate input from Hospitalist service
[2016-11-16] MEDS: PANTOPRAZOLE 40 MG TABLET DR PO SCH (08:35)
[2016-11-16] MEDS: DOCUSATE SODIUM 100 MG CAPSULE PO SCH (08:35)
[2016-11-16] MEDS: BUPROPION HCL 150 MG XL TAB.ER.24H PO SCH (08:36)
[2016-11-16] MEDS: CELECOXIB 200 MG CAPSULE PO SCH (08:36)
[2016-11-16] MEDS: ESCITALOPRAM 10 MG TABLET PO SCH (08:36)
[2016-11-16] MEDS: ASCORBIC ACID 500 MG TABLET PO SCH (08:36)
[2016-11-16] MEDS: VITAMIN D3 1,000 UNITS CAP.LIQ PO SCH (08:36)
[2016-11-16] MEDS: OXYCODONE HCL 5 MG TABLET PO PRN (08:36)
[2016-11-16] MEDS: ASPIRIN (ENTERIC COATED) 325 MG TABLET.EC PO SCH (08:36)
[2016-11-16] MEDS: MULTIVITAMINS 1 TAB TABLET PO SCH (08:36)
[2016-11-16] MEDS: ROSUVASTATIN CALCIUM 10 MG TABLET PO SCH (08:36)
[2016-11-16] MEDS: ONDANSETRON 4 MG/2ML 2 ML VIAL IV PRN (09:10)
--- NOTE | 2016-11-16 11:32 | PDOC43 ---
- Subjective Chief Complaint: S/P RTK arthroplasty 11/14/16 Denies dyspnea or faintness, pain control okay. - Objective Vital Signs Temperature 98.1 F 11/16/16 07:07 Pulse Rate 71 11/16/16 07:07 Respiratory Rate 16 11/16/16 07:07 Blood Pressure 114/74 11/16/16 07:07 O2 Saturation by Pulse Oximetry 93 11/16/16 07:07 Oxygen Delivery Method Room Air Oxygen Flow Rate 0 Intake and Output 11/15/16 11/16/16 11/17/16 06:59 06:59 06:59 Intake Total 7050 4171 Output Total 5323 0079 750 Balance 3152 -0519 -616 General: Alert, Oriented x3, Cooperative, No Acute Distress HEENT: Mucous membr. moist/pink Lungs: Clear to Auscultation Bilaterally Cardiovascular: Regular Rate and Rhythm Abdomen: Soft, Normal Bowel Sounds, No Tenderness, No Masses Extremities: Normal Pulses, No Edema Skin: Normal Color Neurological: Normal Speech Psych/Mental Status: Normal Mood Laboratory 11/16/16 05:30 11/15/16 06:16 11/16/16 07:20 POC Capillary Glucose 112 H Current Medications: Current meds reviewed in EMR. 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 Metformin held but can be restarted on discharge. (3) HTN (hypertension), benign Status: ChronicAssessment/Plan: stable (4) Obesity, Class II, BMI 35-39.9 Status: ChronicAssessment/Plan: Complicates surgical care and diabetic care. (5) Acute blood loss as cause of postoperative anemia Status: AcuteAssessment/Plan: Mild, asymptomatic VTE Prophylaxis: Mechanical and ASA Disposition: anticipate discharge home this afternoon.
[2016-11-16 11:51] VITALS: BP 121/70
--- NOTE | 2016-11-17 11:39 | DS ---
MERCEDES DESHPANDE [id number] : 1955 DATE OF ADMISSION: 11/14/16 DATE OF DISCHARGE: 11/16/16 DISCHARGE DIAGNOSES: Right knee DJD HOSPITAL PROCEDURES: Right TKA SURGEON: Juan Pugh M.D. BRIEF HISTORY: Patient is a 61-year-old female with clinical and radiographic evidence of advanced DJD of their right knee. For the full history please see dictated OP note. BRIEF HOSPITAL COURSE: Patient was admitted on 11/14/16. Dr. Juan Pugh performed a right total knee arthroplasty. They were moved to the recovery room in stable condition. They were given 4 doses of antibiotic for empiric coverage. DVT prophylaxis consisted of aspirin, 325mg daily for 6 weeks, MELBA hose and AV foot pumps and mobility. PT was instituted postop day 1 with right total knee arthroplasty protocol, weightbearing as tolerated. Their incision site remained benign, their vital signs remained stable and they remained neurally and vascularly intact through the duration of the stay. They were discharged home on postop day 2 to continue their outpatient PT at [facility] with right total knee arthroplasty protocol, weightbearing as tolerated. DISCHARGE INSTRUCTIONS: 1. Keep the wound site clean. May shower and pat incision site dry, but do not soak until f/u. Call office with any questions or concerns and f/u for your dressing change as scheduled 1 week postop. 2. Continue the use of MELBA hose bilaterally. 3. Ice pack over the wound site prn. 4. Cooling unit 3-4 times daily for 30 minutes duration. 5. Outpatient PT at [facility] for right total knee arthroplasty protocol, weightbearing as tolerated. MEDICATIONS: 1. Patient is to resume normal preop medications. 2. Anti-coagulation will be with aspirin, 325mg daily for 6 weeks. 3. Pain management will be with Oxycodone, 5mg 1-2 every 4 hours prn. She also received Zofran for nausea, 4mg, ever 6 hours as needed. 4. Patient was also advised on utilization of a multi-vitamin with mineral daily as well as Vitamin C, 500mg daily for 1 month. 5. Patient encouraged to take an iron supplement in the form of ferrous sulfate, 325mg daily for 4 weeks. 6. Colace, 100mg, b.i.d. until regular bowel movement. FOLLOW-UP: Please return to the clinic as scheduled for your first scheduled postop check. Prior to that point in time please call with any questions or concerns. JERRY/benigno CC: Owen Erickson MD PT [facility] [place]
[2016-11-17] MEDS ORDERED: BISACODYL 10 MG SUP PR PRN (15:40)
== END 2016-11-16 13:20 | disposition home or self-care (01) | DRG 470 ==
LOC: OR 11-14 10:16 → MS 11-14 16:52
PROVIDERS: ADMIT Orthopaedic Surgery; ATTEND Orthopaedic Surgery
PROC: 0SRC0J9 Replacement of Right Knee Joint with Synthetic Substitute, Cemented, Open Approach (ICD-10-PCS; principal; 2016-11-14)
DX: M17.11 Unilateral primary osteoarthritis, right knee (principal); Z87.891 Personal history of nicotine dependence; M21.061 Valgus deformity, not elsewhere classified, right knee; E11.9 Type 2 diabetes mellitus without complications; I10 Essential (primary) hypertension; E66.9 Obesity, unspecified; Z68.34 Body mass index [BMI] 34.0-34.9, adult; F41.1 Generalized anxiety disorder; Z79.84 Long term (current) use of oral hypoglycemic drugs